=== PATIENT | male | born 1935 | race Hispanic/Latino ===

== ENCOUNTER → 2020-01-17 | Outpatient (CLI) | payer MEDICARE ==
[2020-01-17 12:49] LABS: CREATININE 1.8 mg/dL (0.5-1.5)
== END | disposition home or self-care (01) ==
LOC: LAB 11:36
PROVIDERS: ATTEND Internal Medicine Cardiovascular Disease
DX: I65.29 Occlusion and stenosis of unspecified carotid artery (principal)
CPT/HCPCS: 36415; 82565; 84520

== ENCOUNTER 2020-01-29 14:29 | Day surgery (SDC) | payer MEDICARE ==
[~2020-01-29] VITALS: Ht 162.6 cm; Wt 87.8 kg
[2020-01-29 06:40] VITALS: BP 97/50
[2020-01-29 12:25] VITALS: BP 157/61
[2020-01-29 12:55] VITALS: BP 159/53
[~2020-01-29 14:29] MED LIST: IOHEXOL-350 75 ML VIAL IV ONE; SODIUM CHLORIDE 0.9% 1000ML 1,000 ML IV ONE
== END 2020-01-29 14:30 | disposition home or self-care (01) ==
LOC: RAH 14:29
PROVIDERS: ATTEND Internal Medicine Cardiovascular Disease
DX: I65.22 Occlusion and stenosis of left carotid artery (principal)
CPT/HCPCS: 70498; 96360; 96361; A4215; A4216; A4221; A4222; A4223 ×3; A4606; A4663; J7030; Q9967